=== PATIENT | female | born 1970 | race Caucasian/White ===

== ENCOUNTER → 2023-11-18 16:50 | Outpatient (REF) | payer OTHER, SELFPAY | LOC: HWRAD 16:50 | PROVIDERS: ATTENDING PHYSICIAN Orthopaedic Surgery | DX: M79.641 Pain in right hand (principal); M79.642 Pain in left hand | CPT/HCPCS: 73140 ==

== ENCOUNTER → 2024-07-31 17:21 | Outpatient (REF) | payer OTHER, SELFPAY | LOC: RAD 17:21 | PROVIDERS: ATTENDING PHYSICIAN Physician Assistant Medical; FAMILY PHYSICIAN Family Medicine | DX: R05.3 Chronic cough (principal) | CPT/HCPCS: 71046 ==

== ENCOUNTER → 2024-10-17 10:32 | Outpatient (REF) | payer OTHER, SELFPAY | LOC: HWWDC 10:32 | PROVIDERS: ATTENDING PHYSICIAN Obstetrics & Gynecology; FAMILY PHYSICIAN Family Medicine; REFERRING PHYSICIAN Internal Medicine Cardiovascular Disease | DX: I34.0 Nonrheumatic mitral (valve) insufficiency (principal); Z12.31 Encounter for screening mammogram for malignant neoplasm of breast | CPT/HCPCS: 77063; 77067; 93306 ==